=== PATIENT | female | born 1990 | race Caucasian/White ===

== ENCOUNTER 2023-10-05 11:42 | Emergency (ER) | payer OTHER ==
[~2023-10-05] VITALS: Ht 160 cm; Wt 113.5 kg
[2023-10-05] MEDS ORDERED: NALOXONE HCL 2 MG/2 ML SYR NAS ONE (12:15)
[2023-10-05 16:28] VITALS: BP 116/86
[2023-10-05] MEDS ORDERED: NALOXONE 4 MG NASAL SPRAY #2 HOME.PACK NAS ONE (16:30)
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
--- NOTE | 2023-10-05 19:30 | EKG ---
[facility] [address] [place], [place] [address] Signed Normal sinus rhythm Rightward axis Borderline ECG No previous ECGs available Confirmed by SULAIMAN BOWERS MD ([id number]) on 10/05/2023 7:29:59 PM Electronically Signed By: SULAIMAN BOWERS 10/05/23 1930 PATIENT NAME: RAMIREZ BRITTON Electrocardiogram DATE OF : 88 PHYSICIAN: SULAIMAN BOWERS REPORT #: [id number] REPORT IS CONFIDENTIAL AND NOT TO BE RELEASED WITHOUT AUTHORIZATION
== END 2023-10-05 16:25 | disposition home or self-care (01) ==
LOC: ED 11:42
DX: T40.601A Poisoning by unspecified narcotics, accidental (unintentional), initial encounter (principal); R07.9 Chest pain, unspecified; Z88.2 Allergy status to sulfonamides; Z88.6 Allergy status to analgesic agent; Z88.5 Allergy status to narcotic agent; Z88.1 Allergy status to other antibiotic agents; Z91.040 Latex allergy status
CPT/HCPCS: 93005; 93010; 99284; J2310; J3490

== ENCOUNTER 2024-03-10 01:58 | Emergency (ER) | payer OTHER ==
[~2024-03-10] VITALS: Ht 160 cm; Wt 114.8 kg
[2024-03-10] MEDS ORDERED: AMOX TR-K CLV1 EAC1 PO (02:40)
[2024-03-10] MEDS ORDERED: AMOXICILLIN/CLAVULANATE K 875 MG HOME.PACK PO ONE (02:45)
[2024-03-10 02:48] VITALS: BP 136/83
== END 2024-03-10 02:49 | disposition home or self-care (01) ==
LOC: ED 01:58
DX: L03.011 Cellulitis of right finger (principal); J45.909 Unspecified asthma, uncomplicated; Z88.6 Allergy status to analgesic agent; Z88.2 Allergy status to sulfonamides; Z88.1 Allergy status to other antibiotic agents; Z88.5 Allergy status to narcotic agent; Z88.8 Allergy status to other drugs, medicaments and biological substances; Z91.040 Latex allergy status
CPT/HCPCS: 36415; 64450; 73140; 85014; 85018; 86850; 86900; 86901; 99283-25

== ENCOUNTER 2024-05-12 08:54 | Emergency (ER) | payer OTHER ==
[~2024-05-12] VITALS: Ht 160 cm; Wt 116.6 kg
[~2024-05-12 08:54] MED LIST: AMOX TR-K CLV1 EAC1 PO
[2024-05-12] MEDS ORDERED: ALBUTEROL/IPRATROPIUM 3 ML NEB INH ONE (09:15)
[2024-05-12 09:26] LABS: BASOPHILS 0.6 % (0-2); EOSINOPHILS 0.9 % (0-6); HEMATOCRIT 37.7 % (35.0-50.0); HEMOGLOBIN 12.8 g/dL (12.0-18.0); LYMPHOCYTES 27.7 % (24-44); MCH 29.3 (27-36); MCV 86.2 fl (81-99); MONOCYTES 5.2 % (0-12); NEUTROPHILS 65.6 % (39-80); PLATELET COUNT 282 K/uL (140-440); RBC 4.37 M/ul (4.3-5.7); RDW 13.1 (10.5-15.0)
[2024-05-12] MEDS ORDERED: IBUPROFEN 600 MG TAB PO ONE (09:30)
[2024-05-12 09:40] LABS: ANION GAP 10.7 (7-21); BUN/CREATININE RATIO 15.73 (6.0-28.6); CALCIUM 8.3 mg/dL (8.5-10.1); CREATININE, SERUM 0.89 mg/dL (0.55-1.02); POTASSIUM 3.7 mmol/L (3.5-5.1)
[2024-05-12 11:29] LABS: N. GONORRRHOEAE BY PCR NOT DETECTED (NOT DETECT)
[2024-05-12] MEDS ORDERED: VENTOLIN HFA18 GM INH (12:02)
[2024-05-12 12:07] VITALS: BP 138/81
== END 2024-05-12 12:08 | disposition home or self-care (01) ==
LOC: ED 08:54
PROVIDERS: Emergency Medicine
DX: J45.909 Unspecified asthma, uncomplicated (principal); Z20.2 Contact with and (suspected) exposure to infections with a predominantly sexual mode of transmission; Z88.6 Allergy status to analgesic agent; Z88.1 Allergy status to other antibiotic agents; Z88.5 Allergy status to narcotic agent; Z88.8 Allergy status to other drugs, medicaments and biological substances; Z91.040 Latex allergy status
CPT/HCPCS: 36415; 71046; 80048; 84703; 85025; 85379; 94640; 99285-25; A9270

== ENCOUNTER 2025-01-22 22:19 | Emergency (ER) | payer OTHER ==
[~2025-01-22] VITALS: Ht 160 cm; Wt 117.0 kg
--- NOTE | ~2025-01-22 | EKG ---
[facility] [address] [place], [place] [address] Draft EKG completed, results pending confirmation PATIENT NAME: RAMIREZ BRITTON Electrocardiogram DATE OF : 88 PHYSICIAN: PRELIMINARY REPORT #: [id number] REPORT IS CONFIDENTIAL AND NOT TO BE RELEASED WITHOUT AUTHORIZATION
[~2025-01-22 22:19] MED LIST changes: +VENTOLIN HFA18 GM INH
[2025-01-23 04:10] LABS: INFLUENZA B NAA NEGATIVE (NEGATIVE); RESPIRATORY SYNCYTIAL VIR NAA NEGATIVE (NEGATIVE)
[2025-01-23] MEDS ORDERED: ALBUTEROL/IPRATROPIUM 3 ML NEB INH ONE (04:30)
[2025-01-23] MEDS ORDERED: ALBUTEROL SULFATE 8 GM HOME.PACK INH ONE (06:45)
[2025-01-23] MEDS ORDERED: AMOXICILLIN/CLAVULANATE K 875 MG HOME.PACK PO ONE (06:45)
[2025-01-23] MEDS ORDERED: DEXAMETHASONE SOD PHOS 10 MG/ML VIAL PO ONE (06:45)
[2025-01-23] MEDS ORDERED: VALACYCLOVIR HCL 500 MG TAB PO ONE (06:45)
[2025-01-23] MEDS ORDERED: METHYLPREDNISOLO4 M1 PO (06:46)
[2025-01-23] MEDS ORDERED: VALTREX1000 MG PO (06:46)
[2025-01-23 07:02] VITALS: BP 121/59
== END 2025-01-23 07:02 | disposition home or self-care (01) ==
LOC: ED 22:19
PROVIDERS: Internal Medicine
DX: J20.9 Acute bronchitis, unspecified (principal); B02.9 Zoster without complications; L03.111 Cellulitis of right axilla; J45.909 Unspecified asthma, uncomplicated; Z88.5 Allergy status to narcotic agent; Z88.1 Allergy status to other antibiotic agents; Z91.040 Latex allergy status; Z88.8 Allergy status to other drugs, medicaments and biological substances
CPT/HCPCS: 71045; 87502; 93005; 93010; 94640; 94664; 99285-25; J1100; U0002